=== PATIENT | male | born 1965 | race Caucasian/White ===

== ENCOUNTER → 2018-07-04 | Outpatient (CLI) | payer OTHER ==
--- NOTE | 2018-07-04 09:01 | XR ---
EXAMINATION TYPE: XR cervical spine comp , 5 VIEWS DATE OF EXAM ORDERED: 07/04/2018 HISTORY: M25.512. COMPARISON: None. FINDINGS: Vertebral body height and alignment are maintained. Atlantoaxial relationships are normal. There is mild intervertebral foraminal narrowing at C3-4 and C4-5 on the right and C3-4 on the left. No fractures are seen. Prevertebral soft tissues are normal. IMPRESSION: 1. NO ACUTE OSSEOUS LESION. 2. DEGENERATIVE CHANGE.
--- NOTE | 2018-07-04 09:02 | XR ---
EXAMINATION TYPE: XR shoulder complete LT , 3 VIEWS DATE OF EXAM ORDERED: 07/04/2018 HISTORY: S49.92XA; M25.512. COMPARISON: None. FINDINGS: No fracture, dislocation or other acute osseous lesion is seen. IMPRESSION: NO ACUTE OSSEOUS LESION.
== END | disposition home or self-care (01) ==
LOC: RADXRMAIN 08:15
PROVIDERS: ATTEND Internal Medicine
DX: M47.812 Spondylosis without myelopathy or radiculopathy, cervical region (principal); S49.92XA Unspecified injury of left shoulder and upper arm, initial encounter; M25.512 Pain in left shoulder
CPT/HCPCS: 72050